=== PATIENT | male | born 1995 | race Caucasian/White ===

== ENCOUNTER 2017-09-04 06:38 | Emergency (ER) | payer BC ==
--- NOTE | 2017-09-04 07:06 | ER Document Report ---
HPI - HPI Patient complains to provider of: cut finger Onset: Just prior to arrival Onset/Duration: Sudden Pain Level: Denies Context: 22 yo male accidentally cut base of right thumb on hook knife in car door as he was getting out this morning.Tetanus is current. Past Medical History - General Information source: Patient - Social History Smoking Status: Never Smoker Frequency of alcohol use: None Drug Abuse: None Lives with: Family Family History: Reviewed & Not Pertinent - Medical History Medical History: Negative Surgical Hx: Negative Vertical Provider Document - CONSTITUTIONAL Agree With Documented VS: Yes Exam Limitations: No Limitations General Appearance: No Apparent Distress - INFECTION CONTROL TRAVEL OUTSIDE OF THE [place] IN LAST 30 DAYS: Yes - HEENT HEENT: Atraumatic - NECK Neck: Supple - MUSCULOSKELETAL/EXTREMETIES Musculoskeletal/Extremeties: MAEW, FROM - tendons function normally - NEURO Level of Consciousness: Awake Motor/Sensory: No Motor Deficit, No Sensory Deficit - DERM Integumentary: Laceration - see above Course - Vital Signs Vital signs: Temp Pulse Resp BP Pulse Ox 98 F 72 16 135/88 H 97 09/04/17 06:45 09/04/17 06:45 09/04/17 06:45 09/04/17 06:45 09/04/17 06:45 Procedures - Laceration/Wound Repair Right Finger Time completed: 09:00 Wound length (cm): 4 Wound's Depth, Shape: Linear - dorsal right 5th finger Anesthetic type: 1% Lidocaine Wound explored: Clean Wound Repaired With: Sutures Suture Size/Type: 4:0, Prolene Number of Sutures: 6 Post-procedure wound care: Sterile dressing applied - bacitracin Hands back picture: 1 - 4 cm Discharge - Discharge Clinical Impression: Finger laceration repair Condition: Good Disposition: HOME, SELF-CARE Instructions: Antibiotic Ointment Protection ([facility]), Laceration Care ([facility]), Soap Cleansing ([facility]) Additional Instructions: Sutures out in 10 days Return for any signs of infection or any concerns Motrin for pain Referrals: KENZIE HENAO MD [NO LOCAL MD] - Follow up as needed
[2017-09-04] MEDS ORDERED: LIDOCAINE 1% INJ-PF (10 MG/ML) 30 ML SDV INJ ONE (07:27)
[2017-09-04 09:38] VITALS: BP 122/64
== END 2017-09-04 09:37 | disposition home or self-care (01) ==
LOC: ER 06:38
PROC: 0HQFXZZ Repair Right Hand Skin, External Approach (ICD-10-PCS; principal; 2017-09-04)
DX: S61.011A Laceration without foreign body of right thumb without damage to nail, initial encounter (principal); W45.8XXA Other foreign body or object entering through skin, initial encounter
CPT/HCPCS: 99283; 12002; J3490